=== PATIENT | female | born 1950 | race Caucasian/White ===

== ENCOUNTER 2016-03-12 18:33 | Emergency (ER) | payer MEDICARE, BC, OTHER ==
[2016-03-12] MEDS ORDERED: dexameTHASONE 4 MG/ML 1ML VIAL (J1100) As Ordered ONE (19:45)
--- NOTE | 2016-03-12 20:30 | EDDOCDS ---
Nurse's Notes [facility] Name: Sita Kline Age: 65 yrs Sex: Female : 1950 Arrival Date: 03/12/2016 Time: 18:33 Bed Family 1 Private MD: Raj Jimenez A. Diagnosis: Allergy, unspecified Presentation: 03/12 19:02 Presenting complaint: Patient states: she feels like her throat is swollen and she is kcs having trouble swallowing - no drooling, no stridor noted. Onset: The symptoms/episode began/occurred suddenly, 30 minute(s) ago. Adult Sepsis Screening: The patient does not have new or worsening altered mentation. Patient's respiratory rate is less than 22. Systolic blood pressure is greater than 100. Patient has a qSOFA score of 0- Negative Sepsis Screen. Suicide/Homicide risk assessment- the patient denies having any suicidal and/or homicidal ideations and does not present with any other emotional, behavioral or mental health complaints. Status: Patient is not a extension service specialist in charge or dependent. Transition of care: patient was not received from another setting of care. 19:02 Method Of Arrival: Walkin/Carried/Asstd kcs 19:02 Acuity: FAHEEM Level 3 cz 19:55 to [facility]. No anaphalxsis. Anaphylaxis evaluation, the patient reports or I have cf2 noted the following symptoms which indicate a significant risk of anaphylaxis: no signs or symptoms of anaphylaxis were noted. Triage Assessment: 19:06 General: Appears comfortable, well developed, well nourished, well groomed, Behavior is kcs cooperative, pleasant. General: starting to itch all over and now has hives on arms and legs. Pain: Denies pain. Neurological: Level of Consciousness is awake, alert. Respiratory: Airway is patent Respiratory effort is even, unlabored, Respiratory pattern is regular, symmetrical. Derm: Skin is intact, is healthy with good turgor, Skin is dry, Skin is red rash. 19:56 Respiratory: No deficits noted. Breath sounds are clear Denies shortness of breath. cf2 Historical: - Allergies: PROPOFOL (Hives)red all over; - Home Meds: 1. metronidazole 500 mg oral tab 2 times per day started 5 days ago 2. Benadryl 25 mg Oral cap 1 cap as needed (Last dose: 03/12/2016 18:30) 3. Benadryl 12.5 mg/5 mL Oral elix 10 mL as needed (Last dose: 03/12/2016 18:30) - PMHx: raynauds syndrome; - PSHx: ; Adenoidectomy; Tonsillectomy; D & C; Hysteroscopy; Colonoscopy; - Social history: Smoking status: Patient states former smoker of tobacco. No barriers to communication noted, The patient speaks fluent Burmese. - Family history: Not pertinent. - : The pt / caregiver states he / she is not on anticoagulants. Home medication list is obtained from the patient. - Exposure Risk Screening:: None identified. Screenin:52 Screening information is obtained from the patient. Fall risk: No risks identified. cf2 Assistance ADL's: requires no assistance with activities of daily living. Abuse/DV Screen: The patient / caregiver reports he/she is: not in a situation that causes fear, pain or injury. Nutritional screening: No deficits noted. Advance Directives: Further advance directive information is declined. home support is adequate. Assessment: 19:14 General: pt now developing hives and swelling of tongue charge nurse notified pt being cz moved to room in main ED when available. 19:52 General: Appears in no apparent distress, comfortable, Behavior is appropriate for age, cf2 cooperative. Pain: Denies pain. Neurological: No deficits noted. EENT: No deficits noted. Reports throat scratchy . Cardiovascular: No deficits noted. Respiratory: No deficits noted. Breath sounds are clear bilaterally. Respiratory: Reports no respiratory complaints. GI: No deficits noted. : No deficits noted. Derm: No deficits noted. Musculoskeletal: No deficits noted. Injury Description: No known injury. Vital Signs: 18:35 BP 154 / 69; Pulse 63; Resp 18 S; Temp 95.9(O); Pulse Ox 100% on R/A; Weight 60.78 kg gr2 (R); Height 5 ft. 2 in. (157.48 cm) (R); Pain 3/10; 18:35 Body Mass Index 24.51 (60.78 kg, 157.48 cm) gr2 Vitals: 18:35 Log In Time: March 12, 2016 at 18:35. gr2 ED Course: 18:35 Patient visited by Georgina Hahn. gr2 18:35 Raj Jimenez is Private Physician. gr2 18:35 Patient moved to Waiting gr2 18:39 Patient visited by Georgina Hahn. gr2 18:39 Patient moved to Pre RCE gr2 19:03 Triage Initiated kcs 19:18 Patient moved to 1 cz 19:22 Marquis Zapata DO is Attending Physician. cs11 19:22 Patient visited by Marquis Zapata DO. cs11 19:44 Davina Curiel,ENEDELIA is Primary Nurse. cf2 19:45 Patient visited by Davina Curiel,ENEDELIA. cf2 19:52 Patient visited by Davina Curiel,ENEDELIA. cf2 19:52 The patient / caregiver is instructed regarding the plan of care and ED course. Patient cf2 has correct armband on for positive identification. Placed in gown. Bed in low position. Call light in reach. Side rails up X 1. Side rails up X2. watch inspector final movement on. Pulse ox on. NIBP on. Property :Personal belongings accompany Pt. Door closed. Noise minimized. Visitors limited. Lights dimmed. Moved to private room. Warm blanket given. Pillow given. Head of bed elevated. 19:52 No IV's were initiated during this patient's visit. No procedures done that require cf2 assistance. 19:58 Raj Jimenez is Referral Physician. cs11 20:21 [facility] Payment Agreement was scanned into [employer] and attached to record. gjb 20:25 Patient moved to Family Mar 20:28 Patient visited by Davina Curiel,ENEDELIA. cf2 Administered Medications: 19:45 Drug: Decadron - Dexamethasone Sodium Phosphate 8 mg [dexamethasone 4 mg/mL injection cf2 solution (2 mL)] Route: IM; Site: left vastus lateralus; Order Results: There are currently no results for this order. Outcome: 19:52 The following High Risk Discharge criteria are identified: None. Discharged to home. cf2 Condition: good Condition: stable. No special radiology studies were completed. 19:59 Discharge ordered by Provider. cs11 20:28 Discharge Assessment: Patient awake, alert and oriented x 3. No cognitive and/or cf2 functional deficits noted. Patient verbalized understanding of disposition instructions. Patient awake and alert. Oriented to person, place and time. patient administered narcotics - no. Discharge instructions given to patient, Instructed on discharge instructions, Prescriptions given X 1. 20:29 Patient left the ED. cf2 Signatures: Alyssa Hanks RN RN kcs Newman, Jill New, RN RN jan Zecher, Calvin, RN RN cz Schiff, Craig, DO cs11 Georgina Hahn gr2 Marian Hall Christina, RN RN cf2 Corrections: (The following items were deleted from the chart) 19:09 19:02 Acuity: FAHEEM Level 4 tony monroe MTDD
--- NOTE | 2016-03-12 20:30 | EDDOCDS ---
Physician Documentation [facility] Name: Sita Kline Age: 65 yrs Sex: Female : 1950 Arrival Date: 03/12/2016 Time: 18:33 Bed Family 1 Private MD: Raj Jimenez A. Disposition: 03/12/16 19:59 Discharged to Home/Self Care. Impression: Allergy, unspecified. - Condition is Stable. - Prescriptions for Prednisone 20 mg Oral Tablet - take 3 tablets by ORAL route once daily for 3 days; 9 tablet. - Medication Reconciliation, Local Pharmacy Hours form. - Follow up: Raj Jimenez; When: Call to arrange an appointment; Reason: Recheck today's complaints. - Problem is chronic. - Symptoms have improved. Historical: - Allergies: PROPOFOL (Hives)red all over; - Home Meds: 1. metronidazole 500 mg oral tab 2 times per day started 5 days ago 2. Benadryl 25 mg Oral cap 1 cap as needed (Last dose: 03/12/2016 18:30) 3. Benadryl 12.5 mg/5 mL Oral elix 10 mL as needed (Last dose: 03/12/2016 18:30) - PMHx: raynauds syndrome; - PSHx: ; Adenoidectomy; Tonsillectomy; D & C; Hysteroscopy; Colonoscopy; - Social history: Smoking status: Patient states former smoker of tobacco. No barriers to communication noted, The patient speaks fluent Yoruba. - Family history: Not pertinent. - : The pt / caregiver states he / she is not on anticoagulants. Home medication list is obtained from the patient. - Exposure Risk Screening:: None identified. Vital Signs: 03/12 18:35 BP 154 / 69; Pulse 63; Resp 18 S; Temp 95.9(O); Pulse Ox 100% on R/A; Weight 60.78 kg / gr2 134 lbs (R); Height 5 ft. 2 in. (157.48 cm) (R); Pain 3/10; 18:35 Body Mass Index 24.51 (60.78 kg, 157.48 cm) gr2 MDM: 19:41 Decadron - Dexamethasone Sodium Phosphate 8 mg IM once ordered. cs11 20:21 [facility] Payment Agreement was scanned into [employer] and attached to record. meron 20:21 Financial registration complete. [email or web address] Administered Medications: 19:45 Drug: Decadron - Dexamethasone Sodium Phosphate 8 mg [dexamethasone 4 mg/mL injection cf2 solution (2 mL)] Route: IM; Site: left vastus lateralus; Signatures: Alyssa Hanks, RN RN kcs Marquis Zapata DO DO cs11 Marian Hall Christina, RN RN cf2 The chart was reviewed and I authenticate all verbal orders and agree with the evaluation and treatment provided.Attachments: 20:21 [facility] Payment Agreement meron MTDD
--- NOTE | 2016-03-14 21:30 | EDDOCDS ---
Nurse's Notes [facility] Name: Sita Kline Age: 65 yrs Sex: Female : 1950 Arrival Date: 03/12/2016 Time: 18:33 Bed Family 1 Private MD: Raj Jimenez A. Diagnosis: Allergy, unspecified Presentation: 03/12 19:02 Presenting complaint: Patient states: she feels like her throat is swollen and she is kcs having trouble swallowing - no drooling, no stridor noted. Onset: The symptoms/episode began/occurred suddenly, 30 minute(s) ago. Adult Sepsis Screening: The patient does not have new or worsening altered mentation. Patient's respiratory rate is less than 22. Systolic blood pressure is greater than 100. Patient has a qSOFA score of 0- Negative Sepsis Screen. Suicide/Homicide risk assessment- the patient denies having any suicidal and/or homicidal ideations and does not present with any other emotional, behavioral or mental health complaints. Status: Patient is not a tax services intern or dependent. Transition of care: patient was not received from another setting of care. 19:02 Method Of Arrival: Walkin/Carried/Asstd kcs 19:02 Acuity: FAHEEM Level 3 cz 19:[facility]. No anaphalxsis. Anaphylaxis evaluation, the patient reports or I have cf2 noted the following symptoms which indicate a significant risk of anaphylaxis: no signs or symptoms of anaphylaxis were noted. Triage Assessment: 19:06 General: Appears comfortable, well developed, well nourished, well groomed, Behavior is kcs cooperative, pleasant. General: starting to itch all over and now has hives on arms and legs. Pain: Denies pain. Neurological: Level of Consciousness is awake, alert. Respiratory: Airway is patent Respiratory effort is even, unlabored, Respiratory pattern is regular, symmetrical. Derm: Skin is intact, is healthy with good turgor, Skin is dry, Skin is red rash. 19:56 Respiratory: No deficits noted. Breath sounds are clear Denies shortness of breath. cf2 Historical: - Allergies: PROPOFOL (Hives)red all over; - Home Meds: 1. metronidazole 500 mg oral tab 2 times per day started 5 days ago 2. Benadryl 25 mg Oral cap 1 cap as needed (Last dose: 03/12/2016 18:30) 3. Benadryl 12.5 mg/5 mL Oral elix 10 mL as needed (Last dose: 03/12/2016 18:30) - PMHx: raynauds syndrome; - PSHx: ; Adenoidectomy; Tonsillectomy; D & C; Hysteroscopy; Colonoscopy; - Social history: Smoking status: Patient states former smoker of tobacco. No barriers to communication noted, The patient speaks fluent Anguillan. - Family history: Not pertinent. - : The pt / caregiver states he / she is not on anticoagulants. Home medication list is obtained from the patient. - Exposure Risk Screening:: None identified. Screenin:52 Screening information is obtained from the patient. Fall risk: No risks identified. cf2 Assistance ADL's: requires no assistance with activities of daily living. Abuse/DV Screen: The patient / caregiver reports he/she is: not in a situation that causes fear, pain or injury. Nutritional screening: No deficits noted. Advance Directives: Further advance directive information is declined. home support is adequate. Assessment: 19:14 General: pt now developing hives and swelling of tongue charge nurse notified pt being cz moved to room in main ED when available. 19:52 General: Appears in no apparent distress, comfortable, Behavior is appropriate for age, cf2 cooperative. Pain: Denies pain. Neurological: No deficits noted. EENT: No deficits noted. Reports throat scratchy . Cardiovascular: No deficits noted. Respiratory: No deficits noted. Breath sounds are clear bilaterally. Respiratory: Reports no respiratory complaints. GI: No deficits noted. : No deficits noted. Derm: No deficits noted. Musculoskeletal: No deficits noted. Injury Description: No known injury. Vital Signs: 18:35 BP 154 / 69; Pulse 63; Resp 18 S; Temp 95.9(O); Pulse Ox 100% on R/A; Weight 60.78 kg gr2 (R); Height 5 ft. 2 in. (157.48 cm) (R); Pain 3/10; 18:35 Body Mass Index 24.51 (60.78 kg, 157.48 cm) gr2 Vitals: 18:35 Log In Time: March 12, 2016 at 18:35. gr2 ED Course: 18:35 Patient visited by Georgina Hahn. gr2 18:35 Raj Jimenez is Private Physician. gr2 18:35 Patient moved to Waiting gr2 18:39 Patient visited by Georgina Hahn. gr2 18:39 Patient moved to Pre RCE gr2 19:03 Triage Initiated kcs 19:18 Patient moved to 1 cz 19:22 Marquis Zapata DO is Attending Physician. cs11 19:22 Patient visited by Marquis Zapata DO. cs11 19:44 Davina Curiel,ENEDELIA is Primary Nurse. cf2 19:45 Patient visited by Davina Curiel RN. cf2 19:52 Patient visited by Davina Curiel,ENEDELIA. cf2 19:52 The patient / caregiver is instructed regarding the plan of care and ED course. Patient cf2 has correct armband on for positive identification. Placed in gown. Bed in low position. Call light in reach. Side rails up X 1. Side rails up X2. environmental monitoring specialist on. Pulse ox on. NIBP on. Property :Personal belongings accompany Pt. Door closed. Noise minimized. Visitors limited. Lights dimmed. Moved to private room. Warm blanket given. Pillow given. Head of bed elevated. 19:52 No IV's were initiated during this patient's visit. No procedures done that require cf2 assistance. 19:58 Raj Jimenez is Referral Physician. cs11 20:21 [facility] Payment Agreement was scanned into [employer] and attached to record. gjb 20:25 Patient moved to Family Mar 20:28 Patient visited by Davina Curiel RN. cf2 03/13 11:21 T-Sheet-- Draft Copy was scanned into [employer] and attached to record. gb Administered Medications: 03/12 19:45 Drug: Decadron - Dexamethasone Sodium Phosphate 8 mg [dexamethasone 4 mg/mL injection cf2 solution (2 mL)] Route: IM; Site: left vastus lateralus; Order Results: There are currently no results for this order. Outcome: 19:52 The following High Risk Discharge criteria are identified: None. Discharged to home. cf2 Condition: good Condition: stable. No special radiology studies were completed. 19:59 Discharge ordered by Provider. cs11 20:28 Discharge Assessment: Patient awake, alert and oriented x 3. No cognitive and/or cf2 functional deficits noted. Patient verbalized understanding of disposition instructions. Patient awake and alert. Oriented to person, place and time. patient administered narcotics - no. Discharge instructions given to patient, Instructed on discharge instructions, Prescriptions given X 1. 20:29 Patient left the ED. cf2 Signatures: Alyssa Hanks RN RN Yas Christy RN RN jan Zecher, Calvin, RN RN cz Natasha Bernard, Reg Reg gb Marquis Zapata, DO cs11 Georgina Hahn 2 Marian Hall Christina, RN RN cf2 Corrections: (The following items were deleted from the chart) 19:09 19:02 Acuity: FAHEEM Level 4 kcs fer Chart Complete MTDD
--- NOTE | 2016-03-14 21:30 | EDDOCDS ---
Physician Documentation [facility] Name: Sita Kline Age: 65 yrs Sex: Female : 1950 Arrival Date: 03/12/2016 Time: 18:33 Bed Family 1 Private MD: Raj Jimenez A. Disposition: 03/12/16 19:59 Discharged to Home/Self Care. Impression: Allergy, unspecified. - Condition is Stable. - Prescriptions for Prednisone 20 mg Oral Tablet - take 3 tablets by ORAL route once daily for 3 days; 9 tablet. - Medication Reconciliation, Local Pharmacy Hours form. - Follow up: Raj Jmienez; When: Call to arrange an appointment; Reason: Recheck today's complaints. - Problem is chronic. - Symptoms have improved. Historical: - Allergies: PROPOFOL (Hives)red all over; - Home Meds: 1. metronidazole 500 mg oral tab 2 times per day started 5 days ago 2. Benadryl 25 mg Oral cap 1 cap as needed (Last dose: 03/12/2016 18:30) 3. Benadryl 12.5 mg/5 mL Oral elix 10 mL as needed (Last dose: 03/12/2016 18:30) - PMHx: raynauds syndrome; - PSHx: ; Adenoidectomy; Tonsillectomy; D & C; Hysteroscopy; Colonoscopy; - Social history: Smoking status: Patient states former smoker of tobacco. No barriers to communication noted, The patient speaks fluent Armenian. - Family history: Not pertinent. - : The pt / caregiver states he / she is not on anticoagulants. Home medication list is obtained from the patient. - Exposure Risk Screening:: None identified. Vital Signs: 03/12 18:35 BP 154 / 69; Pulse 63; Resp 18 S; Temp 95.9(O); Pulse Ox 100% on R/A; Weight 60.78 kg / gr2 134 lbs (R); Height 5 ft. 2 in. (157.48 cm) (R); Pain 3/10; 18:35 Body Mass Index 24.51 (60.78 kg, 157.48 cm) gr2 MDM: 19:41 Decadron - Dexamethasone Sodium Phosphate 8 mg IM once ordered. cs11 20:21 [facility] Payment Agreement was scanned into [employer] and attached to record. [facility] 20:21 Financial registration complete. [facility] 03/13 11:21 T-Sheet-- Draft Copy was scanned into [employer] and attached to record. gb Administered Medications: 03/12 19:45 Drug: Decadron - Dexamethasone Sodium Phosphate 8 mg [dexamethasone 4 mg/mL injection cf2 solution (2 mL)] Route: IM; Site: left vastus lateralus; Signatures: Alyssa Hanks, RN RN Natasha Leo, Reg Reg gb Marquis Zapata, DO cs11 Marian Hall [facility] Davina Curiel RN RN cf2 The chart was reviewed and I authenticate all verbal orders and agree with the evaluation and treatment provided.Attachments: 20:21 [facility] Payment Agreement [facility] 03/13 11:21 T-Sheet-- Draft Copy gb Chart Complete MTDD
--- NOTE | 2016-03-14 21:30 | EDDOCDS ---
Physician Documentation [facility] Name: Sita Kline Age: 65 yrs Sex: Female : 1950 Arrival Date: 03/12/2016 Time: 18:33 Bed Family 1 Private MD: Raj Jimenez A. Disposition: 03/12/16 19:59 Discharged to Home/Self Care. Impression: Allergy, unspecified. - Condition is Stable. - Prescriptions for Prednisone 20 mg Oral Tablet - take 3 tablets by ORAL route once daily for 3 days; 9 tablet. - Medication Reconciliation, Local Pharmacy Hours form. - Follow up: Raj Jimenez; When: Call to arrange an appointment; Reason: Recheck today's complaints. - Problem is chronic. - Symptoms have improved. Historical: - Allergies: PROPOFOL (Hives)red all over; - Home Meds: 1. metronidazole 500 mg oral tab 2 times per day started 5 days ago 2. Benadryl 25 mg Oral cap 1 cap as needed (Last dose: 03/12/2016 18:30) 3. Benadryl 12.5 mg/5 mL Oral elix 10 mL as needed (Last dose: 03/12/2016 18:30) - PMHx: raynauds syndrome; - PSHx: ; Adenoidectomy; Tonsillectomy; D & C; Hysteroscopy; Colonoscopy; - Social history: Smoking status: Patient states former smoker of tobacco. No barriers to communication noted, The patient speaks fluent Nepali. - Family history: Not pertinent. - : The pt / caregiver states he / she is not on anticoagulants. Home medication list is obtained from the patient. - Exposure Risk Screening:: None identified. Vital Signs: 03/12 18:35 BP 154 / 69; Pulse 63; Resp 18 S; Temp 95.9(O); Pulse Ox 100% on R/A; Weight 60.78 kg / gr2 134 lbs (R); Height 5 ft. 2 in. (157.48 cm) (R); Pain 3/10; 18:35 Body Mass Index 24.51 (60.78 kg, 157.48 cm) gr2 MDM: 19:41 Decadron - Dexamethasone Sodium Phosphate 8 mg IM once ordered. cs11 20:21 [facility] Payment Agreement was scanned into [employer] and attached to record. [facility] 20:21 Financial registration complete. [facility] 03/13 11:21 T-Sheet-- Draft Copy was scanned into [employer] and attached to record. gb Administered Medications: 03/12 19:45 Drug: Decadron - Dexamethasone Sodium Phosphate 8 mg [dexamethasone 4 mg/mL injection cf2 solution (2 mL)] Route: IM; Site: left vastus lateralus; Signatures: Alyssa Hanks, RN RN Natasha Leo, Reg Reg gb Marquis Zapata, DO cs11 Marian Hall [facility] Davina Curiel RN RN cf2 The chart was reviewed and I authenticate all verbal orders and agree with the evaluation and treatment provided.Attachments: 20:21 [facility] [place] [facility] 03/13 11:21 T-Sheet-- Draft Copy gb Chart Complete MTDD
== END 2016-03-12 20:29 | disposition home or self-care (01) ==
LOC: M ED 18:33
DX: T78.40XA Allergy, unspecified, initial encounter (principal); I73.00 Raynaud's syndrome without gangrene; Z79.899 Other long term (current) drug therapy; Z88.4 Allergy status to anesthetic agent; Z79.2 Long term (current) use of antibiotics; Z87.891 Personal history of nicotine dependence
CPT/HCPCS: 96372; 99284; J1100

== ENCOUNTER → 2017-05-21 | Outpatient (REF) | payer MEDICARE, BC, OTHER ==
[2017-05-21 19:59] LABS: APPEARANCE, URINE CLOUDY (CLEAR); BACTERIA, URINE AUTO 2+ (NEGATIVE); BILIRUBIN, URINE AUTO NEGATIVE (NEGATIVE); BLOOD, URINE BLOOD 3+ (NEGATIVE); COLOR, URINE YELLOW (YELLOW); GLUCOSE, URINE (UA) AUTO NEGATIVE (NEGATIVE); KETONE, URINE AUTO NEGATIVE (NEGATIVE); LEUKOCYTE ESTERASE, URINE AUTO 3+ (NEGATIVE); NITRITE, URINE AUTO NEGATIVE (NEGATIVE); PROTEIN, URINE AUTO 1+ mg/dL (NEGATIVE); RBC, URINE AUTO 92 /HPF (0-3); SPECIFIC GRAVITY URINE AUTO 1.014 (1.002-1.035); SQUAMOUS EPITHELIAL CELL UR AU 0 /HPF (0-6); UROBILINOGEN, URINE AUTO 0.2 mg/dL (0.0-2.0); WBC, URINE AUTO 138 /HPF (0-3)
== END ==
LOC: M LAB REF 19:00
DX: N39.0 Urinary tract infection, site not specified (principal)
CPT/HCPCS: 81001

== ENCOUNTER → 2020-03-04 | Outpatient (CLI) | payer SELFPAY ==
[~2020-03-04] MED LIST: BENA25TA10 PO; PRED20TA PO
== END ==
LOC: M LABSMTC 09:37
PROVIDERS: ATTEND Pediatrics
DX: Z20.828 Contact with and (suspected) exposure to other viral communicable diseases (principal)

== ENCOUNTER → 2023-04-30 | Outpatient (REF) | payer MEDICARE, OTHER | LOC: M PLALAB 15:17 | PROVIDERS: ATTEND Obstetrics & Gynecology | DX: L29.2 Pruritus vulvae (principal) ==

== ENCOUNTER 2023-11-08 21:47 | Emergency (ER) | payer MEDICARE, OTHER ==
[~2023-11-08] VITALS: Ht 156.2 cm; Wt 59.6 kg
[2023-11-08] MEDS ORDERED: FLUC200T4 (22:11)
[2023-11-08] MEDS ORDERED: REST0.05 (22:11)
[2023-11-08] MEDS ORDERED: BACTDSTA (22:11)
[2023-11-08] MEDS ORDERED: ERGO500029 (22:11)
[2023-11-08] MEDS ORDERED: ATOR40TA75 (22:11)
[2023-11-08] MEDS ORDERED: IBUP200C28 PO (22:11)
[2023-11-08] MEDS ORDERED: OPTI0.5D2 OP (22:11)
[2023-11-08 23:22] LABS: BASO # 0.1 10^3/uL (0.0-0.2); BASO % 0.5 % (0.0-1.0); EOS # 0.2 10^3/uL (0.0-0.5); HEMATOCRIT 37.8 % (36.0-47.0); HEMOGLOBIN 12.5 g/dl (12.0-15.5); LYMPH # 3.1 10^3/uL (1.5-5.0); LYMPH % 27.3 % (24.0-44.0); MEAN CORPUSCULAR HGB CONC 33.1 g/dl (32.0-36.5); MEAN CORPUSCULAR VOLUME 96.7 fl (80.0-96.0); MONO # 1.4 10^3/uL (0.0-0.8); MONO % 11.9 % (2.0-8.0); NEUTROPHILS # 6.7 10^3/uL (1.5-8.5); PLATELET COUNT, AUTOMATED 283 10^3/uL (150-450); RED BLOOD COUNT 3.91 10^6/uL (4.00-5.40); WHITE BLOOD COUNT 11.5 10^3/uL (4.0-10.0)
[2023-11-08] MEDS: ASPIRIN 81MG CHEW TABLET PO ONE (23:22)
[2023-11-08 23:36] LABS: CK-MB VALUE MASS < 1.0 NG/ML (<3.6); CPK CREATINE PHOSPHOKINASE 90 U/L (34-145); MB/CK RELATIVE INDEX 1.11 (< OR =4)
[2023-11-08 23:37] LABS: ALBUMIN 3.9 G/DL (3.2-5.2); ALKALINE PHOSPHATASE 50 U/L (46-116); ALT/SGPT 25 U/L (7.0-40); AST/SGOT 16 U/L (<34); BILIRUBIN,DIRECT 0.1 MG/DL (<0.4); BILIRUBIN,TOTAL 0.4 MG/DL (0.3-1.2); BLOOD UREA NITROGEN 19 MG/DL (9-23); CALCIUM LEVEL 9.7 MG/DL (8.3-10.6); CARBON DIOXIDE LEVEL 27 MMOL/L (20-31); CHLORIDE LEVEL 106 MMOL/L (98-107); CREATININE FOR GFR 0.88 MG/DL (0.55-1.30); GLOMERULAR FILTRATION RATE > 60.0 (>39); GLUCOSE, FASTING 108 MG/DL (74-106); POTASSIUM SERUM 4.4 MMOL/L (3.5-5.1); SODIUM LEVEL 136 MMOL/L (136-145); TOTAL PROTEIN 7.2 G/DL (5.7-8.2)
[2023-11-09 02:01] LABS: CK-MB VALUE MASS < 1.0 NG/ML (<3.6)
[2023-11-09 02:02] LABS: CPK CREATINE PHOSPHOKINASE 89 U/L (34-145); MB/CK RELATIVE INDEX 1.12 (< OR =4)
[2023-11-09 03:33] LABS: RSV AMPLIFICATION NEGATIVE (NEGATIVE)
[2023-11-09 05:00] VITALS: BP 134/78; TEMP 98.1; O2SAT 99
== END 2023-11-09 05:43 | disposition home or self-care (01) ==
LOC: M ED 21:47
DX: J06.9 Acute upper respiratory infection, unspecified (principal); Z87.891 Personal history of nicotine dependence; Z88.1 Allergy status to other antibiotic agents; Z88.5 Allergy status to narcotic agent; Z88.8 Allergy status to other drugs, medicaments and biological substances

== ENCOUNTER → 2024-03-10 | Outpatient (REF) | payer MEDICARE, BC ==
[~2024-03-10] MED LIST changes: +ATOR40TA75; +BACTDSTA; +ERGO500029; +FLUC-1; +IBUP200C28 PO; +OPTI0.5D2 OP; +REST0.05
== END ==
LOC: M PLALAB 14:25
PROVIDERS: ATTEND Obstetrics & Gynecology
DX: Z53.9 Procedure and treatment not carried out, unspecified reason (principal)